=== PATIENT | female | born 1980 | race Asian ===

== ENCOUNTER → 2017-04-13 | Outpatient (CLI) | payer OTHER ==
[~2017-04-13] MED LIST: IRON PO; None per pt
== END | disposition home or self-care (01) ==
LOC: PETCFH 09:49
PROVIDERS: ATTEND Internal Medicine Hematology & Oncology
DX: C83.51 Lymphoblastic (diffuse) lymphoma, lymph nodes of head, face, and neck (principal); C88.4 Extranodal marginal zone B-cell lymphoma of mucosa-associated lymphoid tissue [MALT-lymphoma]
CPT/HCPCS: 78815; A9552

== ENCOUNTER 2017-04-28 10:02 | Day surgery (SDC) | payer OTHER ==
[~2017-04-28] VITALS: Ht 162.6 cm; Wt 52.6 kg
[2017-04-28 10:46] VITALS: BP 99/65
[2017-04-28] MEDS ORDERED: SODIUM CHLORIDE 0.9% 1,000 ML IV SCH (10:48)
[2017-04-28] MEDS ORDERED: FENTANYL PF 100 MCG/2ML ONE (11:06)
[2017-04-28] MEDS ORDERED: MIDAZOLAM 1 MG/ML, 5ML ONE ×2 (11:06)
[2017-04-28] MEDS ORDERED: NALOXONE 1 MG/ML, 2ML ONE (11:07)
[2017-04-28] MEDS ORDERED: FLUMAZENIL 0.1 MG/1 ML, 5ML ONE (11:07)
== END 2017-04-28 12:55 ==
LOC: OUT 10:02
PROVIDERS: ATTEND Internal Medicine Hematology & Oncology
DX: C85.90 Non-Hodgkin lymphoma, unspecified, unspecified site (principal)
CPT/HCPCS: 49180; 77012; 88305; 99156; J2250; J3010; J7030; 88341; 88342; 88360; 99157; G0461; J2310

== ENCOUNTER 2017-05-12 07:34 | Day surgery (SDC) | payer OTHER ==
[~2017-05-12] VITALS: Ht 162.6 cm; Wt 52.7 kg
[2017-05-12 08:37] VITALS: BP 95/66
[2017-05-12] MEDS ORDERED: CEFAZOLIN PMX 1GM/50ML 50 ML ONE (08:43)
[2017-05-12] MEDS ORDERED: LIDOCAINE 1%, 20ML ONE (09:07)
[2017-05-12] MEDS ORDERED: CEFAZOLIN PMX 1GM/50ML 50 ML IV STA (09:16)
[2017-05-12] MEDS ORDERED: MIDAZOLAM 1 MG/ML, 5ML ONE (09:17)
[2017-05-12] MEDS ORDERED: FLUMAZENIL 0.1 MG/1 ML, 5ML ONE (09:17)
[2017-05-12] MEDS ORDERED: FENTANYL PF 100 MCG/2ML ONE (09:17)
[2017-05-12] MEDS ORDERED: NALOXONE 1 MG/ML, 2ML ONE (09:17)
[2017-05-12] MEDS ORDERED: SODIUM CHLORIDE 0.9% 1,000 ML IV SCH ×2 (09:30→09:38)
== END 2017-05-12 12:20 ==
LOC: OUT 07:34
PROVIDERS: ATTEND Internal Medicine Hematology & Oncology
DX: Z45.2 Encounter for adjustment and management of vascular access device (principal); C83.90 Non-follicular (diffuse) lymphoma, unspecified, unspecified site; D50.9 Iron deficiency anemia, unspecified
CPT/HCPCS: 36561; 76937; 77001; 99156; 99157; C1788; C1894; J0690; J1642; J2250; J3010; J3490; J7030; J2310

== ENCOUNTER → 2017-07-25 | Outpatient (CLI) | payer OTHER | END | disposition home or self-care (01) | LOC: PETCFH 08:26 | PROVIDERS: ATTEND Internal Medicine Hematology & Oncology | DX: C88.4 Extranodal marginal zone B-cell lymphoma of mucosa-associated lymphoid tissue [MALT-lymphoma] (principal); C83.81 Other non-follicular lymphoma, lymph nodes of head, face, and neck | CPT/HCPCS: 78815; A9552 ==

== ENCOUNTER 2017-08-26 12:49 | Inpatient (IN) | payer OTHER ==
[~2017-08-26] VITALS: Ht 162.6 cm; Wt 61.3 kg
[2017-08-26] MEDS ORDERED: SODIUM CHLORIDE FLUSH 10ML SYR IVF ONE (13:30)
[2017-08-26 13:51] LABS: MEAN CORPUSCULAR HEMOGLOBIN 29.8 pg (27.0-34.8); MEAN CORPUSCULAR HGB CONC 33.3 g/dL (32.4-35.8); MEAN CORPUSCULAR VOLUME 89.4 fL (80-100); MEAN PLATELET VOLUME 8.2 fL (7.4-10.4); PLATELET COUNT 123 x10^3/uL (130-400); RED BLOOD COUNT 3.77 x10^6/uL (3.82-5.3); RED CELL DISTRIBUTION WIDTH 16.9 % (9.6-15.2)
[2017-08-26] MEDS ORDERED: SODIUM CHLORIDE 0.9% 1,000ML IVBOLUS ONE ×3 (14:00→16:30)
[2017-08-26] MEDS ORDERED: ONDANSETRON 2MG/ML, 2ML IVPush ONE (14:00)
[2017-08-26 14:01] LABS: ALANINE AMINOTRANSFERASE 40 U/L (12-78); ALBUMIN 3.7 g/dL (3.4-5.0); ANION GAP 9 mmol/L (5-15); CALCIUM 8.9 mg/dL (8.5-10.1); CHLORIDE 103 mmol/L (98-107); CREATININE 0.65 mg/dL (0.55-1.02)
[2017-08-26 14:06] LABS: ALKALINE PHOSPHATASE 69 U/L (45-117); BILIRUBIN,TOTAL 0.4 mg/dL (0.2-1.0); TOTAL PROTEIN 7.5 g/dL (6.4-8.2)
[2017-08-26] MEDS ORDERED: ONDANSETRON 2MG/ML, 2ML ONE (14:11)
[2017-08-26 14:22] LABS: MICROSCOPIC AUTO
[2017-08-26 14:30] LABS: CULTURE INDICATED? YES
[2017-08-26 14:38] LABS: MD YES
[2017-08-26 14:45] LABS: ANISOCYTOSIS 1+; BAND#(MANUAL) 2.29 x10^3/uL; BANDS%(MANUAL) 31 % (0-7); LYMPH#(MANUAL) 0.67 x10^3/uL (1-3.4); LYMPHS% (MANUAL) 9 % (22-44); METAMYELOCYTES# (MANUAL) 0.07 x10^3/uL (0-0); METAMYELOCYTES% (MANUAL) 1 % (0-1); MONOS#(MANUAL) 0.67 x10^3/uL (0.3-2.7); MONOS% (MANUAL) 9 % (2-9); POLYCHROMASIA 1+; SEGS% (MANUAL) 50 % (42-75)
[2017-08-26 14:46] LABS: <PLATELET ESTIMATE> ADEQUATE; <PLT MORPHOLOGY> NORMAL PLT MORPH; TOXIC GRAN 1+
[2017-08-26] MEDS ORDERED: MORPHINE SULFATE 4 MG/ML, 1ML ONE (14:53)
[2017-08-26] MEDS ORDERED: MORPHINE SULFATE 4 MG/ML, 1ML IVPush PRN (15:00)
[2017-08-26] MEDS ORDERED: SODIUM CHLORIDE 0.9% 1,000 ML IV ONE (17:34)
[2017-08-26] MEDS ORDERED: ONDA4TAB10 PO (17:43)
[2017-08-26] MEDS ORDERED: SODIUM CHLORIDE FLUSH 10ML SYR IVF PRN (18:00)
[2017-08-26] MEDS ORDERED: TEMAZEPAM 15 MG CAPSULE PO PRN (19:00)
[2017-08-26] MEDS ORDERED: METOCLOPRAMIDE 5 MG/ML, 2ML IVPush PRN (19:00)
[2017-08-26] MEDS ORDERED: ENALAPRILAT 1.25 MG/ML, 2ML IVPush PRN (19:00)
[2017-08-26] MEDS ORDERED: morphine SULFATE 10 MG/ML, 1ML IVPush PRN (19:00)
[2017-08-26] MEDS ORDERED: ONDANSETRON ODT 4 MG PO PRN (19:00)
[2017-08-26] MEDS ORDERED: DOCUSATE 100 MG CAPSULE PO PRN (19:00)
[2017-08-26 19:25] VITALS: BP 102/68
[2017-08-26] MEDS ORDERED: OMEP-110 PO (19:26)
[2017-08-26] MEDS ORDERED: NORE1TAB11 PO (19:26)
[2017-08-26] MEDS: SODIUM CHLORIDE 0.9% 1,000 ML IV SCH (19:37)
[2017-08-27 01:16] VITALS: BP 100/67
[2017-08-27] MEDS: SODIUM CHLORIDE 0.9% 1,000 ML IV SCH ×4 (02:19→22:54)
[2017-08-27 05:54] LABS: ANION GAP 8 mmol/L (5-15); CALCIUM 8.1 mg/dL (8.5-10.1); CHLORIDE 109 mmol/L (98-107)
[2017-08-27 05:56] LABS: CREATININE 0.53 mg/dL (0.55-1.02)
[2017-08-27 06:01] LABS: MEAN CORPUSCULAR HEMOGLOBIN 30.2 pg (27.0-34.8); MEAN CORPUSCULAR HGB CONC 33.7 g/dL (32.4-35.8); MEAN CORPUSCULAR VOLUME 89.5 fL (80-100); PLATELET COUNT 105 x10^3/uL (130-400); RED BLOOD COUNT 2.93 x10^6/uL (3.82-5.3); RED CELL DISTRIBUTION WIDTH 16.7 % (9.6-15.2)
[2017-08-27 07:02] LABS: MD YES
[2017-08-27 07:04] LABS: BAND#(MANUAL) 0.44 x10^3/uL; BANDS%(MANUAL) 8 % (0-7); LYMPH#(MANUAL) 0.39 x10^3/uL (1-3.4); LYMPHS% (MANUAL) 7 % (22-44); METAMYELOCYTES# (MANUAL) 0.11 x10^3/uL (0-0); METAMYELOCYTES% (MANUAL) 2 % (0-1); MONOS#(MANUAL) 0.22 x10^3/uL (0.3-2.7); MONOS% (MANUAL) 4 % (2-9); NRBC % (MANUAL) 1 % (0-1); SEG#(MANUAL) 4.35 x10^3/uL (1.8-6.8); SEGS% (MANUAL) 79 % (42-75)
[2017-08-27 07:05] LABS: <PLATELET ESTIMATE> DECREASED; <PLT MORPHOLOGY> NORMAL PLT MORPH; ANISOCYTOSIS 1+; POLYCHROMASIA 1+; TOXIC GRAN 1+
[2017-08-27 07:27] VITALS: BP 103/72
[2017-08-27] MEDS: ACETAMINOPHEN 325 MG TABLET PO PRN ×2 (07:33→15:41)
[2017-08-27 08:28] LABS: THYROID STIMULATING HORMONE 1.32 mIU/L (0.358-3.740)
[2017-08-27 12:51] VITALS: BP 111/78
[2017-08-27 18:38] VITALS: BP 98/59
[2017-08-28 01:12] VITALS: BP 101/68
[2017-08-28] MEDS: SODIUM CHLORIDE 0.9% 1,000 ML IV SCH (05:23)
[2017-08-28 05:45] LABS: BASOPHILS # (AUTO) 0.01 x10^3/uL (0-0.1); BASOPHILS % (AUTO) 0 % (0-1); EOSINOPHILS # (AUTO) 0.02 x10^3/uL (0-0.4); EOSINOPHILS % (AUTO) 0 % (1-7); LYMPHOCYTES # (AUTO) 0.24 x10^3/uL (1-3.4); LYMPHOCYTES % (AUTO) 5 % (22-44); MD NO; MEAN CORPUSCULAR HEMOGLOBIN 30.1 pg (27.0-34.8); MEAN CORPUSCULAR HGB CONC 33.8 g/dL (32.4-35.8); MEAN PLATELET VOLUME 7.9 fL (7.4-10.4); MONOCYTES # (AUTO) 0.44 x10^3/uL (0.2-0.8); MONOCYTES % (AUTO) 9 % (2-9); NEUTROPHILS # (AUTO) 4.23 x10^3/uL (1.8-6.8); NEUTROPHILS % (AUTO) 86 % (42-75); PLATELET COUNT 127 x10^3/uL (130-400); RED BLOOD COUNT 3.19 x10^6/uL (3.82-5.3)
[2017-08-28 05:53] LABS: CHLORIDE 110 mmol/L (98-107)
[2017-08-28 06:01] LABS: ANION GAP 7 mmol/L (5-15); CALCIUM 8.5 mg/dL (8.5-10.1); CREATININE 0.53 mg/dL (0.55-1.02)
[2017-08-28 07:40] VITALS: BP 121/78
[2017-08-28] MEDS ORDERED: OMNIPAQUE 350 MG/ML, 100ML BOTTLE ONE (09:54)
[2017-08-28 12:45] VITALS: BP 118/81
== END 2017-08-28 17:25 | disposition home or self-care (01) | DRG 641 ==
LOC: ED 17:15 → EDIP 17:34 → 3NW 18:50
PROVIDERS: ADMIT Hospitalist; ATTEND Hospitalist
DX: E86.0 Dehydration (principal); C85.90 Non-Hodgkin lymphoma, unspecified, unspecified site; D69.59 Other secondary thrombocytopenia; D64.81 Anemia due to antineoplastic chemotherapy; T45.1X5A Adverse effect of antineoplastic and immunosuppressive drugs, initial encounter; R00.0 Tachycardia, unspecified
CPT/HCPCS: 36415; 71275; 80048; 80053; 81001; 82533; 83690; 83735; 84443; 84703; 85025; 87086; 96361; 96374; 96375; J2405; Q9967; J2270; J7030

== ENCOUNTER → 2017-10-05 | Outpatient (CLI) | payer OTHER ==
[~2017-10-05] MED LIST changes: +NORE1TAB11 PO; +OMEP-110 PO; +ONDA4TAB10 PO
[2017-10-05 17:49] LABS: MICROSCOPIC AUTO
[2017-10-05 17:51] LABS: CULTURE INDICATED? YES
== END | disposition home or self-care (01) ==
LOC: LAB 17:19
PROVIDERS: ATTEND Internal Medicine Hematology & Oncology
DX: C83.81 Other non-follicular lymphoma, lymph nodes of head, face, and neck (principal); C88.4 Extranodal marginal zone B-cell lymphoma of mucosa-associated lymphoid tissue [MALT-lymphoma]; D70.1 Agranulocytosis secondary to cancer chemotherapy; R59.0 Localized enlarged lymph nodes
CPT/HCPCS: 81001; 87086

== ENCOUNTER → 2017-11-04 | Outpatient (CLI) | payer OTHER | END | disposition home or self-care (01) | LOC: CVU 12:43 → EDSTATUS 13:00 | PROVIDERS: ATTEND Internal Medicine Hematology & Oncology | DX: C88.4 Extranodal marginal zone B-cell lymphoma of mucosa-associated lymphoid tissue [MALT-lymphoma] (principal); C83.81 Other non-follicular lymphoma, lymph nodes of head, face, and neck | CPT/HCPCS: 93306 ==

== ENCOUNTER → 2018-02-13 | Outpatient (CLI) | payer OTHER ==
[~2018-02-13] MED LIST changes: +OMNIPAQUE 350 MG/ML, 100ML BOTTLE ONE
== END | disposition home or self-care (01) ==
LOC: RAD 08:42
PROVIDERS: ATTEND Internal Medicine Hematology & Oncology
DX: N32.89 Other specified disorders of bladder (principal); C88.4 Extranodal marginal zone B-cell lymphoma of mucosa-associated lymphoid tissue [MALT-lymphoma]; C83.81 Other non-follicular lymphoma, lymph nodes of head, face, and neck
CPT/HCPCS: 71260; 74177; J1642; Q9967

== ENCOUNTER → 2018-02-20 | Outpatient (CLI) | payer OTHER ==
[~2018-02-20] MED LIST changes: -OMNIPAQUE 350 MG/ML, 100ML BOTTLE ONE
== END | disposition home or self-care (01) ==
LOC: CFH 07:19
PROVIDERS: ATTEND Internal Medicine Hematology & Oncology
DX: C83.81 Other non-follicular lymphoma, lymph nodes of head, face, and neck (principal); C88.4 Extranodal marginal zone B-cell lymphoma of mucosa-associated lymphoid tissue [MALT-lymphoma]; I95.9 Hypotension, unspecified
CPT/HCPCS: 93005; 93306

== ENCOUNTER → 2018-04-15 | Outpatient (CLI) | payer OTHER ==
[2018-04-15 11:55] LABS: ALANINE AMINOTRANSFERASE 20 U/L (12-78); ANION GAP 6 mmol/L (5-15); CALCIUM 8.7 mg/dL (8.5-10.1); CHLORIDE 109 mmol/L (98-107); CREATININE 0.67 mg/dL (0.55-1.02)
[2018-04-15 11:57] LABS: ALKALINE PHOSPHATASE 47 U/L (45-117); BILIRUBIN,TOTAL 0.7 mg/dL (0.2-1.0); TOTAL PROTEIN 7.2 g/dL (6.4-8.2)
== END | disposition home or self-care (01) ==
LOC: LAB 11:21
PROVIDERS: ATTEND Internal Medicine Hematology & Oncology
DX: C83.81 Other non-follicular lymphoma, lymph nodes of head, face, and neck (principal); R59.0 Localized enlarged lymph nodes; C88.4 Extranodal marginal zone B-cell lymphoma of mucosa-associated lymphoid tissue [MALT-lymphoma]; D70.1 Agranulocytosis secondary to cancer chemotherapy; Z51.11 Encounter for antineoplastic chemotherapy; Z51.12 Encounter for antineoplastic immunotherapy
CPT/HCPCS: 36415; 80053

== ENCOUNTER → 2018-08-17 | Outpatient (CLI) | payer OTHER ==
[~2018-08-17] MED LIST changes: +OMNIPAQUE 350 MG/ML, 100ML BOTTLE ONE
== END | disposition home or self-care (01) ==
LOC: CFH 12:20
PROVIDERS: ATTEND Internal Medicine Hematology & Oncology
DX: C83.81 Other non-follicular lymphoma, lymph nodes of head, face, and neck (principal); K76.9 Liver disease, unspecified
CPT/HCPCS: 71260; 74177; Q9967

== ENCOUNTER 2018-10-06 11:06 | Outpatient (CLI) | payer OTHER ==
[~2018-10-06 11:06] MED LIST changes: -OMNIPAQUE 350 MG/ML, 100ML BOTTLE ONE
[2018-10-06 11:34] LABS: ALBUMIN 4.4 g/dL (3.4-5.0); ANION GAP 6 mmol/L (5-15); CALCIUM 9.4 mg/dL (8.5-10.1); CHLORIDE 107 mmol/L (98-107)
[2018-10-06 11:37] LABS: ALANINE AMINOTRANSFERASE 20 U/L (12-78); ALKALINE PHOSPHATASE 52 U/L (45-117); BILIRUBIN,TOTAL 0.7 mg/dL (0.2-1.0); CREATININE 0.78 mg/dL (0.55-1.02); TOTAL PROTEIN 7.4 g/dL (6.4-8.2)
== END 2018-10-06 23:59 | disposition home or self-care (01) ==
LOC: LAB 11:06
PROVIDERS: ATTEND Internal Medicine Hematology & Oncology
DX: Z51.12 Encounter for antineoplastic immunotherapy (principal); Z51.11 Encounter for antineoplastic chemotherapy; C83.81 Other non-follicular lymphoma, lymph nodes of head, face, and neck; R59.0 Localized enlarged lymph nodes; C88.4 Extranodal marginal zone B-cell lymphoma of mucosa-associated lymphoid tissue [MALT-lymphoma]; D70.1 Agranulocytosis secondary to cancer chemotherapy
CPT/HCPCS: 36415; 80053; 83615

== ENCOUNTER → 2018-10-09 | Outpatient (CLI) | payer BC, OTHER | END | disposition home or self-care (01) | LOC: CFH 09:08 → MERGE 09:08 | PROVIDERS: ATTEND Internal Medicine Cardiovascular Disease | DX: R00.0 Tachycardia, unspecified (principal) | CPT/HCPCS: 93306 ==

== ENCOUNTER → 2018-11-15 | Outpatient (CLI) | payer OTHER | END | disposition home or self-care (01) | LOC: RAD 14:42 | PROVIDERS: ATTEND Internal Medicine | DX: M25.511 Pain in right shoulder (principal); Z98.890 Other specified postprocedural states ==

== ENCOUNTER → 2018-11-22 | Outpatient (CLI) | payer OTHER ==
[2018-11-22 14:24] LABS: BASOPHILS # (AUTO) 0.01 x10^3/uL (0-0.1); BASOPHILS % (AUTO) 0 % (0-1); EOSINOPHILS # (AUTO) 0.19 x10^3/uL (0-0.4); EOSINOPHILS % (AUTO) 5 % (1-7); LYMPHOCYTES # (AUTO) 0.75 x10^3/uL (1-3.4); LYMPHOCYTES % (AUTO) 19 % (22-44); MD NO; MEAN CORPUSCULAR HEMOGLOBIN 28.9 pg (27.0-34.8); MEAN CORPUSCULAR HGB CONC 33.2 g/dL (32.4-35.8); MEAN CORPUSCULAR VOLUME 86.9 fL (80-100); MEAN PLATELET VOLUME 7.8 fL (7.4-10.4); MONOCYTES # (AUTO) 0.36 x10^3/uL (0.2-0.8); MONOCYTES % (AUTO) 9 % (2-9); NEUTROPHILS # (AUTO) 2.68 x10^3/uL (1.8-6.8); NEUTROPHILS % (AUTO) 67 % (42-75); PLATELET COUNT 206 x10^3/uL (130-400); RED BLOOD COUNT 4.41 x10^6/uL (3.82-5.3); RED CELL DISTRIBUTION WIDTH 13.9 % (9.6-15.2)
[2018-11-22 14:45] LABS: FREE T4 (FREE THYROXINE) 0.93 ng/dL (0.76-1.46); THYROID STIMULATING HORMONE 1.09 mIU/L (0.358-3.740)
== END | disposition home or self-care (01) ==
LOC: LAB 14:07
PROVIDERS: ATTEND Obstetrics & Gynecology
DX: E03.9 Hypothyroidism, unspecified (principal); E34.9 Endocrine disorder, unspecified; N92.0 Excessive and frequent menstruation with regular cycle
CPT/HCPCS: 36415; 82670; 82728; 83001; 84439; 84443; 85025

== ENCOUNTER → 2018-11-27 | Outpatient (CLI) | payer OTHER | END | disposition home or self-care (01) | LOC: CFH 15:00 | PROVIDERS: ATTEND Obstetrics & Gynecology | DX: N94.6 Dysmenorrhea, unspecified (principal) | CPT/HCPCS: 76830 ==

== ENCOUNTER → 2018-12-01 | Outpatient (CLI) | payer OTHER ==
[2018-12-01 14:45] LABS: ALANINE AMINOTRANSFERASE 21 U/L (12-78); ALBUMIN 3.9 g/dL (3.4-5.0); ANION GAP 5 mmol/L (5-15); CALCIUM 9.2 mg/dL (8.5-10.1); CHLORIDE 106 mmol/L (98-107); CREATININE 0.72 mg/dL (0.55-1.02)
[2018-12-01 14:47] LABS: ALKALINE PHOSPHATASE 64 U/L (45-117); BILIRUBIN,TOTAL 0.4 mg/dL (0.2-1.0); TOTAL PROTEIN 7.2 g/dL (6.4-8.2)
== END | disposition home or self-care (01) ==
LOC: LAB 14:10
PROVIDERS: ATTEND Internal Medicine Hematology & Oncology
DX: Z51.12 Encounter for antineoplastic immunotherapy (principal); Z51.11 Encounter for antineoplastic chemotherapy; C83.81 Other non-follicular lymphoma, lymph nodes of head, face, and neck; R59.0 Localized enlarged lymph nodes; C88.4 Extranodal marginal zone B-cell lymphoma of mucosa-associated lymphoid tissue [MALT-lymphoma]; D70.1 Agranulocytosis secondary to cancer chemotherapy
CPT/HCPCS: 36415; 80053

== ENCOUNTER 2019-06-01 14:59 | Outpatient (CLI) | payer OTHER ==
[2019-06-01 15:41] LABS: ALANINE AMINOTRANSFERASE 21 U/L (12-78); ALBUMIN 3.9 g/dL (3.4-5.0); ANION GAP 6 mmol/L (5-15); CALCIUM 8.4 mg/dL (8.5-10.1); CHLORIDE 107 mmol/L (98-107); CREATININE 0.75 mg/dL (0.55-1.02)
[2019-06-01 15:43] LABS: ALKALINE PHOSPHATASE 55 U/L (45-117); BILIRUBIN,TOTAL 0.6 mg/dL (0.2-1.0); TOTAL PROTEIN 6.7 g/dL (6.4-8.2)
== END 2019-06-01 23:59 | disposition home or self-care (01) ==
LOC: LAB 14:59
PROVIDERS: ATTEND Internal Medicine Hematology & Oncology
DX: Z51.11 Encounter for antineoplastic chemotherapy (principal); Z51.12 Encounter for antineoplastic immunotherapy; C83.81 Other non-follicular lymphoma, lymph nodes of head, face, and neck; R59.0 Localized enlarged lymph nodes; C88.4 Extranodal marginal zone B-cell lymphoma of mucosa-associated lymphoid tissue [MALT-lymphoma]; D70.1 Agranulocytosis secondary to cancer chemotherapy
CPT/HCPCS: 36415; 80053

== ENCOUNTER 2019-07-27 09:14 | Outpatient (CLI) | payer OTHER ==
[2019-07-27 09:39] LABS: ALANINE AMINOTRANSFERASE 21 U/L (12-78); ALBUMIN 3.9 g/dL (3.4-5.0); ANION GAP 4 mmol/L (5-15); CALCIUM 8.7 mg/dL (8.5-10.1); CHLORIDE 108 mmol/L (98-107); CREATININE 0.71 mg/dL (0.55-1.02)
[2019-07-27 09:41] LABS: ALKALINE PHOSPHATASE 62 U/L (45-117); BILIRUBIN,TOTAL 0.8 mg/dL (0.2-1.0)
== END 2019-07-27 23:59 | disposition home or self-care (01) ==
LOC: LAB 09:14
PROVIDERS: ATTEND Internal Medicine Hematology & Oncology
DX: Z51.11 Encounter for antineoplastic chemotherapy (principal); Z51.12 Encounter for antineoplastic immunotherapy; D70.1 Agranulocytosis secondary to cancer chemotherapy; C88.4 Extranodal marginal zone B-cell lymphoma of mucosa-associated lymphoid tissue [MALT-lymphoma]; C83.81 Other non-follicular lymphoma, lymph nodes of head, face, and neck
CPT/HCPCS: 36415; 80053

== ENCOUNTER → 2019-09-20 | Outpatient (CLI) | payer OTHER ==
[2019-09-20 13:55] LABS: ALANINE AMINOTRANSFERASE 19 U/L (12-78); ANION GAP 4 mmol/L (5-15); CALCIUM 9.2 mg/dL (8.5-10.1); CHLORIDE 106 mmol/L (98-107); CREATININE 0.64 mg/dL (0.55-1.02)
[2019-09-20 13:57] LABS: ALKALINE PHOSPHATASE 70 U/L (45-117); BILIRUBIN,TOTAL 0.6 mg/dL (0.2-1.0); TOTAL PROTEIN 7.4 g/dL (6.4-8.2)
== END | disposition home or self-care (01) ==
LOC: LAB 13:31
PROVIDERS: ATTEND Internal Medicine Hematology & Oncology
DX: Z51.11 Encounter for antineoplastic chemotherapy (principal); Z51.12 Encounter for antineoplastic immunotherapy; C83.81 Other non-follicular lymphoma, lymph nodes of head, face, and neck; C88.4 Extranodal marginal zone B-cell lymphoma of mucosa-associated lymphoid tissue [MALT-lymphoma]; R59.0 Localized enlarged lymph nodes; D70.1 Agranulocytosis secondary to cancer chemotherapy
CPT/HCPCS: 36415; 80053

== ENCOUNTER → 2019-11-23 | Outpatient (CLI) | payer OTHER ==
[~2019-11-23] MED LIST changes: +OMNIPAQUE 350 MG/ML, 100ML BOTTLE ONE
== END | disposition home or self-care (01) ==
LOC: CFH 11:17
PROVIDERS: ATTEND Internal Medicine Hematology & Oncology
DX: C83.81 Other non-follicular lymphoma, lymph nodes of head, face, and neck (principal); C88.4 Extranodal marginal zone B-cell lymphoma of mucosa-associated lymphoid tissue [MALT-lymphoma]; D73.4 Cyst of spleen
CPT/HCPCS: 71260; 74177; Q9967

== ENCOUNTER → 2019-11-27 | Outpatient (CLI) | payer OTHER ==
[~2019-11-27] MED LIST changes: -OMNIPAQUE 350 MG/ML, 100ML BOTTLE ONE
[2019-11-27 09:49] LABS: ALBUMIN 4.1 g/dL (3.4-5.0); CALCIUM 9.3 mg/dL (8.5-10.1)
[2019-11-27 09:53] LABS: ALANINE AMINOTRANSFERASE 16 U/L (12-78); ALKALINE PHOSPHATASE 66 U/L (45-117); BILIRUBIN,TOTAL 0.8 mg/dL (0.2-1.0); CREATININE 0.67 mg/dL (0.55-1.02); TOTAL PROTEIN 7.3 g/dL (6.4-8.2)
[2019-11-27 09:57] LABS: ANION GAP 6 mmol/L (5-15); CHLORIDE 108 mmol/L (98-107)
== END | disposition home or self-care (01) ==
LOC: LAB 09:25
PROVIDERS: ATTEND Internal Medicine Hematology & Oncology
DX: Z51.11 Encounter for antineoplastic chemotherapy (principal); Z51.12 Encounter for antineoplastic immunotherapy; C83.81 Other non-follicular lymphoma, lymph nodes of head, face, and neck; C88.4 Extranodal marginal zone B-cell lymphoma of mucosa-associated lymphoid tissue [MALT-lymphoma]; D70.1 Agranulocytosis secondary to cancer chemotherapy; R59.0 Localized enlarged lymph nodes
CPT/HCPCS: 36415; 80053

== ENCOUNTER 2019-12-06 08:06 | Day surgery (SDC) | payer OTHER ==
[~2019-12-06] VITALS: Ht 162.6 cm; Wt 52.9 kg
[2019-12-06] MEDS ORDERED: SODIUM CHLORIDE 0.9% 1,000 ML IV SCH (08:21)
[2019-12-06 08:29] VITALS: BP 98/67
[2019-12-06] MEDS ORDERED: LIDOCAINE 1%, 20ML ONE (08:39)
[2019-12-06] MEDS ORDERED: NALOXONE 1 MG/ML, 2ML ONE (09:40)
[2019-12-06] MEDS ORDERED: FLUMAZENIL 0.1 MG/1 ML, 5ML ONE (09:40)
[2019-12-06] MEDS ORDERED: FENTANYL PF 100 MCG/2ML ONE ×2 (09:40)
[2019-12-06] MEDS ORDERED: MIDAZOLAM 1 MG/ML, 5ML ONE (09:40)
== END 2019-12-06 11:55 | disposition home or self-care (01) ==
LOC: OUT 08:06
PROVIDERS: ATTEND Internal Medicine Hematology & Oncology
DX: Z45.2 Encounter for adjustment and management of vascular access device (principal); C83.81 Other non-follicular lymphoma, lymph nodes of head, face, and neck; D50.0 Iron deficiency anemia secondary to blood loss (chronic); E55.9 Vitamin D deficiency, unspecified
CPT/HCPCS: 36590; 77001; 99156; 99157; J2250; J3010; J7030; J2310

== ENCOUNTER 2020-01-08 09:20 | Emergency (ER) | payer OTHER ==
[~2020-01-08] VITALS: Ht 162.6 cm; Wt 53.0 kg
[2020-01-08 09:30] VITALS: BP 108/72
--- NOTE | 2020-01-08 09:46 | NUR ---
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
--- NOTE | 2020-01-08 09:56 | NUR ---
PT CAME IN CONCERNED ABOUT HER PORT HEALING SITE. SHE RECENTLY HAS HER PORT REMOVED AND SHE IS AFRAID IT IS INFECTED. SHE IS IN REMISSION FOR LYMPHOMA. SITE IS CLEAN, DRY, AND PINK WITH MINOR SCABING. PT IS RESTING IN [facility]. MD IS BEDSIDE FOR ASSESSMENT
[2020-01-08 10:19] LABS: BASOPHILS # (AUTO) 0.01 x10^3/uL (0-0.1); BASOPHILS % (AUTO) 0 % (0-1); EOSINOPHILS # (AUTO) 0.15 x10^3/uL (0-0.4); EOSINOPHILS % (AUTO) 4 % (1-7); LYMPHOCYTES # (AUTO) 0.75 x10^3/uL (1-3.4); LYMPHOCYTES % (AUTO) 21 % (22-44); MD NO; MEAN CORPUSCULAR HEMOGLOBIN 29.3 pg (27.0-34.8); MEAN CORPUSCULAR HGB CONC 33.1 g/dL (32.4-35.8); MEAN CORPUSCULAR VOLUME 88.6 fL (80-100); MEAN PLATELET VOLUME 8.4 fL (7.4-10.4); MONOCYTES # (AUTO) 0.32 x10^3/uL (0.2-0.8); MONOCYTES % (AUTO) 9 % (2-9); NEUTROPHILS # (AUTO) 2.44 x10^3/uL (1.8-6.8); NEUTROPHILS % (AUTO) 66 % (42-75); PLATELET COUNT 197 x10^3/uL (130-400); RED BLOOD COUNT 4.99 x10^6/uL (3.82-5.3); RED CELL DISTRIBUTION WIDTH 12.7 % (9.6-15.2)
== END 2020-01-08 11:45 | disposition home or self-care (01) ==
LOC: ED 11:15
DX: L02.213 Cutaneous abscess of chest wall (principal)
CPT/HCPCS: 36415; 76604; 85025; 99284

== ENCOUNTER → 2020-04-11 | Outpatient (CLI) | payer OTHER ==
[2020-04-11 14:36] LABS: ALANINE AMINOTRANSFERASE 15 U/L (12-78); ALBUMIN 3.8 g/dL (3.4-5.0); ANION GAP 6 mmol/L (5-15); CALCIUM 8.7 mg/dL (8.5-10.1); CHLORIDE 109 mmol/L (98-107)
[2020-04-11 14:39] LABS: ALKALINE PHOSPHATASE 64 U/L (45-117); BILIRUBIN,TOTAL 0.5 mg/dL (0.2-1.0); CREATININE 0.61 mg/dL (0.55-1.02); TOTAL PROTEIN 6.6 g/dL (6.4-8.2)
== END | disposition home or self-care (01) ==
LOC: LAB 14:11
PROVIDERS: ATTEND Internal Medicine Hematology & Oncology
DX: Z51.11 Encounter for antineoplastic chemotherapy (principal); Z51.12 Encounter for antineoplastic immunotherapy; C88.4 Extranodal marginal zone B-cell lymphoma of mucosa-associated lymphoid tissue [MALT-lymphoma]; C83.81 Other non-follicular lymphoma, lymph nodes of head, face, and neck; R59.0 Localized enlarged lymph nodes; D70.1 Agranulocytosis secondary to cancer chemotherapy
CPT/HCPCS: 36415; 80053; 83615

== ENCOUNTER → 2020-04-22 | Outpatient (CLI) | payer OTHER ==
[~2020-04-22] MED LIST changes: +OMNIPAQUE 350 MG/ML, 100ML BOTTLE ONE
== END | disposition home or self-care (01) ==
LOC: CFH 14:13
PROVIDERS: ATTEND Internal Medicine Hematology & Oncology
DX: C83.81 Other non-follicular lymphoma, lymph nodes of head, face, and neck (principal); C88.4 Extranodal marginal zone B-cell lymphoma of mucosa-associated lymphoid tissue [MALT-lymphoma]; M95.4 Acquired deformity of chest and rib; K76.89 Other specified diseases of liver
CPT/HCPCS: 71260; 74177; Q9967

== ENCOUNTER → 2020-07-24 | Outpatient (CLI) | payer OTHER ==
[~2020-07-24] MED LIST changes: -OMNIPAQUE 350 MG/ML, 100ML BOTTLE ONE
[2020-07-24 07:50] LABS: BASOPHILS % (AUTO) 0 % (0-1); EOSINOPHILS % (AUTO) 3 % (1-7); LYMPHOCYTES % (AUTO) 14 % (22-44); MEAN CORPUSCULAR HEMOGLOBIN 30.1 pg (27.0-34.8); MEAN CORPUSCULAR HGB CONC 34.3 g/dL (32.4-35.8); MEAN PLATELET VOLUME 8.1 fL (7.4-10.4); MONOCYTES % (AUTO) 6 % (2-9); NEUTROPHILS % (AUTO) 77 % (42-75); PLATELET COUNT 205 x10^3/uL (130-400); RED BLOOD COUNT 4.73 x10^6/uL (3.82-5.3); RED CELL DISTRIBUTION WIDTH 13.4 % (9.6-15.2)
[2020-07-24 07:58] LABS: MD NO
[2020-07-24 08:10] LABS: FREE T4 (FREE THYROXINE) 0.95 ng/dL (0.76-1.46)
== END | disposition home or self-care (01) ==
LOC: LAB 07:37
PROVIDERS: ATTEND Obstetrics & Gynecology
DX: N95.0 Postmenopausal bleeding (principal)
CPT/HCPCS: 36415; 82728; 84439; 84443; 85025

== ENCOUNTER → 2020-08-28 | Outpatient (CLI) | payer OTHER ==
[~2020-08-28] MED LIST changes: +ASCO100018 PO; +CHOL10003 PO; +CYAN1TAB29 PO
[2020-08-28 15:23] LABS: BASOPHILS % (AUTO) 0 % (0-1); EOSINOPHILS % (AUTO) 3 % (1-7); LYMPHOCYTES % (AUTO) 24 % (22-44); MEAN CORPUSCULAR HEMOGLOBIN 29.8 pg (27.0-34.8); MEAN CORPUSCULAR HGB CONC 33.9 g/dL (32.4-35.8); MEAN PLATELET VOLUME 8.3 fL (7.4-10.4); MONOCYTES % (AUTO) 8 % (2-9); NEUTROPHILS % (AUTO) 65 % (42-75); PLATELET COUNT 221 x10^3/uL (130-400); RED BLOOD COUNT 4.51 x10^6/uL (3.82-5.3); RED CELL DISTRIBUTION WIDTH 12.5 % (9.6-15.2)
[2020-08-28 15:31] LABS: ALANINE AMINOTRANSFERASE 16 U/L (12-78); ANION GAP 3 mmol/L (5-15); CHLORIDE 106 mmol/L (98-107)
[2020-08-28 15:33] LABS: MD NO
[2020-08-28 15:36] LABS: ALKALINE PHOSPHATASE 61 U/L (45-117); BILIRUBIN,TOTAL 0.5 mg/dL (0.2-1.0)
== END | disposition home or self-care (01) ==
LOC: STAR 13:58
PROVIDERS: ATTEND Obstetrics & Gynecology
DX: Z01.812 Encounter for preprocedural laboratory examination (principal); Z20.822 Contact with and (suspected) exposure to COVID-19; N95.0 Postmenopausal bleeding
CPT/HCPCS: 36415; 71046; 80053; 84703; 85025; 93005; U0003

== ENCOUNTER 2020-09-03 12:18 | Observation (INO) | payer OTHER ==
[~2020-09-03] VITALS: Ht 162.6 cm; Wt 58.6 kg
[2020-09-03] MEDS ORDERED: CHLORHEXIDINE 15 ML UDC ONE (12:40)
[2020-09-03] MEDS ORDERED: LACTATED RINGERS 1,000 ML IV SCH (13:00)
[2020-09-03] MEDS ORDERED: CHLORHEXIDINE 15 ML UDC PO ONE (13:00)
[2020-09-03 13:44] LABS: HCG UR SG 1.022 (1.003-1.030)
[2020-09-03] MEDS ORDERED: INDIGO CARMINE 0.8%, 5ML ONE (14:23)
[2020-09-03] MEDS ORDERED: FLUORESCEIN SODIUM 500 MG/5 ML ONE (14:23)
[2020-09-03] MEDS ORDERED: BUPIVACAINE/PF 0.25% ONE (14:23)
[2020-09-03] MEDS ORDERED: EPINEPHRINE 1 MG/ML, 1ML ONE (14:23)
[2020-09-03] MEDS ORDERED: PROPOFOL 50 ML ONE (15:04)
[2020-09-03] MEDS ORDERED: MIDAZOLAM 1 MG/ML, 2ML ONE (15:05)
[2020-09-03] MEDS ORDERED: FENTANYL PF 250 MCG/5ML ONE (15:05)
[2020-09-03] MEDS ORDERED: EPHEDRINE 50 MG/ML, 1ML IVPush PRN (16:00)
[2020-09-03] MEDS ORDERED: MEPERIDINE/PF 25MG/0.5ML IVPush PRN (16:00)
[2020-09-03] MEDS ORDERED: ACETAMINOPHEN 325 MG TABLET PO PRN (16:00)
[2020-09-03] MEDS ORDERED: LABETALOL 5MG/ML, 20ML IV PRN (16:00)
[2020-09-03] MEDS ORDERED: DIPHENHYDRAMINE 50 MG/ML, 1ML IVPush PRN (16:00)
[2020-09-03] MEDS ORDERED: PROMETHAZINE 25 MG/ML, 1ML IVPush PRN (16:00)
[2020-09-03] MEDS ORDERED: ONDANSETRON 2MG/ML, 2ML IVPush PRN (16:00)
[2020-09-03] MEDS ORDERED: EPHEDRINE 50 MG/ML, 1ML IM PRN (16:00)
[2020-09-03] MEDS ORDERED: DIAZEPAM 5 MG/ML, 2ML IVPush PRN (16:00)
[2020-09-03] MEDS ORDERED: ONDANSETRON 2MG/ML, 2ML ONE ×2 (16:35→18:11)
[2020-09-03] MEDS ORDERED: KETOROLAC 30 MG/1 ML ONE (16:35)
[2020-09-03] MEDS ORDERED: ROCURONIUM 10MG/ML,5ML ONE (16:35)
[2020-09-03] MEDS ORDERED: PROPOFOL 10 MG/ML, 20ML ONE (16:35)
[2020-09-03] MEDS ORDERED: DEXAMETHASONE 4 MG/ML, 1ML ONE (16:35)
[2020-09-03] MEDS ORDERED: SUCCINYLCHOLINE 20 MG/ML, 10ML ONE (16:35)
[2020-09-03] MEDS ORDERED: CEFAZOLIN 1,000 MG ONE (16:35)
[2020-09-03] MEDS ORDERED: FENTANYL PF 100 MCG/2ML ONE (18:09)
[2020-09-03] MEDS ORDERED: OXYcodone 5 MG/5 ML ORAL.SOL UDC ONE (18:09)
[2020-09-03] MEDS: FENTANYL PF 100 MCG/2ML IV PRN ×2 (18:19→18:25)
[2020-09-03] MEDS: OXYcodone 5 MG/5 ML ORAL.SOL UDC PO PRN ×2 (18:31→21:13)
[2020-09-03] MEDS ORDERED: HYDROmorphone 1 MG/ML, 1ML INJ ONE (18:46)
[2020-09-03] MEDS: HYDROmorphone 1 MG/ML, 1ML INJ IVPush PRN ×3 (18:49→19:04)
[2020-09-03] MEDS ORDERED: OXYC1TAB14 PO (20:03)
[2020-09-03] MEDS ORDERED: IBUP-1222 PO (20:04)
[2020-09-03] MEDS ORDERED: DOCU-131 PO (20:04)
[2020-09-03 20:33] LABS: BASOPHILS % (AUTO) 0 % (0-1); EOSINOPHILS % (AUTO) 0 % (1-7); LYMPHOCYTES % (AUTO) 4 % (22-44); MEAN CORPUSCULAR HEMOGLOBIN 29.7 pg (27.0-34.8); MONOCYTES % (AUTO) 1 % (2-9); NEUTROPHILS % (AUTO) 95 % (42-75); PLATELET COUNT 177 x10^3/uL (130-400); RED BLOOD COUNT 4.26 x10^6/uL (3.82-5.3); RED CELL DISTRIBUTION WIDTH 12.3 % (9.6-15.2)
[2020-09-03 20:45] LABS: ANION GAP 4 mmol/L (5-15); CALCIUM 8.7 mg/dL (8.5-10.1); CHLORIDE 110 mmol/L (98-107)
[2020-09-03 20:56] LABS: MD SCAN
[2020-09-03] MEDS ORDERED: KETOROLAC 30 MG/1 ML IM PRN (23:30)
[2020-09-03] MEDS ORDERED: OXYcodone/APAP 5/325MG TABLET PO PRN (23:30)
[2020-09-03] MEDS ORDERED: IBUPROFEN 600 MG TABLET PO PRN (23:30)
[2020-09-04 00:25] VITALS: BP 93/58
[2020-09-04] MEDS ORDERED: KETOROLAC 30 MG/1 ML IV PRN (00:30)
[2020-09-04] MEDS ORDERED: OXYcodone/APAP 5/325MG TABLET PO PRN (00:30)
[2020-09-04] MEDS ORDERED: morphine SULFATE 10 MG/ML, 1ML IV PRN (00:30)
[2020-09-04] MEDS: LACTATED RINGERS 1,000 ML IV SCH ×2 (02:18→10:30)
[2020-09-04] MEDS ORDERED: ONDANSETRON 2MG/ML, 2ML IVPush PRN (02:30)
[2020-09-04] MEDS: IBUPROFEN 600 MG TABLET PO SCH ×3 (04:23→11:00)
[2020-09-04 05:04] VITALS: BP 103/69
[2020-09-04 06:54] VITALS: BP 104/70
[2020-09-04] MEDS ORDERED: CYANOCOBALOMIN 100MCG TABLET PO SCH (09:00)
[2020-09-04] MEDS ORDERED: FOLIC ACID 1 MG TABLET PO SCH (09:00)
[2020-09-04] MEDS ORDERED: ASCORBIC ACID 500 MG TABLET PO SCH (09:00)
[2020-09-04] MEDS ORDERED: CHOLECALCIFEROL 1,000 UNIT TABLET PO SCH (09:00)
[2020-09-04 09:08] LABS: BASOPHILS % (AUTO) 0 % (0-1); EOSINOPHILS % (AUTO) 0 % (1-7); LYMPHOCYTES % (AUTO) 8 % (22-44); MEAN CORPUSCULAR HEMOGLOBIN 30.1 pg (27.0-34.8); MEAN CORPUSCULAR HGB CONC 34.4 g/dL (32.4-35.8); MEAN PLATELET VOLUME 8.2 fL (7.4-10.4); MONOCYTES % (AUTO) 6 % (2-9); NEUTROPHILS % (AUTO) 87 % (42-75); PLATELET COUNT 177 x10^3/uL (130-400); RED BLOOD COUNT 3.58 x10^6/uL (3.82-5.3); RED CELL DISTRIBUTION WIDTH 12.2 % (9.6-15.2)
[2020-09-04 09:10] LABS: MD SCAN
[2020-09-04 09:16] LABS: ALBUMIN 3.3 g/dL (3.4-5.0); ANION GAP 5 mmol/L (5-15); CALCIUM 8.6 mg/dL (8.5-10.1); CHLORIDE 109 mmol/L (98-107)
[2020-09-04 09:20] LABS: ALANINE AMINOTRANSFERASE 13 U/L (12-78); ALKALINE PHOSPHATASE 43 U/L (45-117); BILIRUBIN,TOTAL 0.9 mg/dL (0.2-1.0); TOTAL PROTEIN 5.7 g/dL (6.4-8.2)
[2020-09-04 14:55] VITALS: BP 106/71
== END 2020-09-04 16:50 | disposition home or self-care (01) ==
LOC: OUT 12:18 → ORIP 23:30 → 4NE 23:41 → DCLOUNGE 09-04 16:38
PROVIDERS: ADMIT Obstetrics & Gynecology; ATTEND Obstetrics & Gynecology
DX: N95.0 Postmenopausal bleeding (principal); N85.4 Malposition of uterus; R93.89 Abnormal findings on diagnostic imaging of other specified body structures; Z85.72 Personal history of non-Hodgkin lymphomas; Z98.891 History of uterine scar from previous surgery; Z79.899 Other long term (current) drug therapy
CPT/HCPCS: 36415; 52000; 58552; 80048; 80053; 81025; 82962; 85014; 85018; 85025; 86850; 86870; 86900; 86922; 88307; 96361; 96374; 96375; G0378; J0171; J0330; J0690; J1100; J1170; J1885; J2250; J2270; J2405; J2704; J3010; J7120; 86923

== ENCOUNTER 2020-09-05 10:45 | Inpatient (IN) | payer OTHER ==
[~2020-09-05] VITALS: Ht 162.6 cm; Wt 59.0 kg
[~2020-09-05 10:45] MED LIST changes: +DOCU-131 PO; +IBUP-1222 PO; +OXYC1TAB14 PO
--- NOTE | 2020-09-05 11:20 | NUR ---
Pt had recent hysterectomy on 09/03, surgical sites look clean and well approx, suddend onset of R sided chest pain that radiates to back, onset last night, pain is intermittent and described as an aching feeling. Placed on all monitors, positioned for comfort, VSS, given warm blanket, NADN.
[2020-09-05 11:36] LABS: BASOPHILS % (AUTO) 0 % (0-1); EOSINOPHILS % (AUTO) 1 % (1-7); LYMPHOCYTES % (AUTO) 7 % (22-44); MEAN CORPUSCULAR HEMOGLOBIN 29.9 pg (27.0-34.8); MEAN CORPUSCULAR HGB CONC 33.9 g/dL (32.4-35.8); MEAN PLATELET VOLUME 8.1 fL (7.4-10.4); MONOCYTES % (AUTO) 7 % (2-9); NEUTROPHILS % (AUTO) 84 % (42-75); PLATELET COUNT 157 x10^3/uL (130-400); RED BLOOD COUNT 3.46 x10^6/uL (3.82-5.3); RED CELL DISTRIBUTION WIDTH 12.6 % (9.6-15.2)
[2020-09-05 11:39] LABS: MD NO
[2020-09-05 11:50] LABS: ALBUMIN 3.5 g/dL (3.4-5.0); ANION GAP 3 mmol/L (5-15); CALCIUM 8.4 mg/dL (8.5-10.1); CHLORIDE 110 mmol/L (98-107)
[2020-09-05 11:53] LABS: ALANINE AMINOTRANSFERASE 13 U/L (12-78); ALKALINE PHOSPHATASE 46 U/L (45-117); BILIRUBIN,TOTAL 0.8 mg/dL (0.2-1.0); TOTAL PROTEIN 6.2 g/dL (6.4-8.2)
--- NOTE | 2020-09-05 12:23 | NUR ---
PIV inserted per order. Pt resting in bed, denies needs.
[2020-09-05] MEDS ORDERED: OMNIPAQUE 350 MG/ML, 75ML BOTTLE ONE (13:09)
[2020-09-05] MEDS ORDERED: CEFTRIAXONE PMX 1GM/50ML 50 ML IV ONE (13:30)
[2020-09-05] MEDS ORDERED: CEFTRIAXONE PMX 1GM/50ML 50 ML ONE (13:44)
[2020-09-05] MEDS ORDERED: LIDOCAINE 1%, 10ML ONE (13:57)
[2020-09-05] MEDS ORDERED: hydrALAzine 20 MG/ML, 1ML IVPush PRN (14:00)
[2020-09-05] MEDS ORDERED: BUTALB/APAP/CAFFEINE 50MG/325MG/40MG PO PRN ×2 (14:00)
[2020-09-05] MEDS ORDERED: GUAIFENESIN/DM 200-20MG, 10ML UDC PO PRN (14:00)
[2020-09-05] MEDS ORDERED: BACLOFEN 10 MG TABLET PO PRN (14:00)
[2020-09-05] MEDS ORDERED: ACETAMINOPHEN 325 MG TABLET PO PRN (14:00)
[2020-09-05] MEDS ORDERED: ONDANSETRON ODT 4 MG PO PRN (14:00)
[2020-09-05] MEDS ORDERED: ZOLPIDEM 5MG TABLET PO PRN (14:00)
[2020-09-05] MEDS ORDERED: ENALAPRILAT 1.25 MG/ML, 2ML IVPush PRN (14:00)
[2020-09-05] MEDS ORDERED: HYDROmorphone 2 MG/ML, 1ML IVPush PRN (14:00)
--- NOTE | 2020-09-05 14:24 | NUR ---
Report given to Lorene VELAZQUEZ
--- NOTE | 2020-09-05 14:25 | NUR ---
Pt currently in IR for thoracentesis
[2020-09-05 15:26] VITALS: BP 109/74
[2020-09-05 15:27] VITALS: BP 109/74
[2020-09-05] MEDS: OXYcodone IR 5MG TABLET PO PRN ×2 (17:00→20:52)
[2020-09-05 19:13] VITALS: BP 105/56
[2020-09-05] MEDS: MELATONIN 5 MG TABLET PO SCH (20:51)
[2020-09-06 00:41] VITALS: BP 104/72
[2020-09-06] MEDS: OXYcodone IR 5MG TABLET PO PRN (02:36)
[2020-09-06 05:50] LABS: BASOPHILS % (AUTO) 0 % (0-1); EOSINOPHILS % (AUTO) 3 % (1-7); LYMPHOCYTES % (AUTO) 8 % (22-44); MEAN CORPUSCULAR HGB CONC 34.1 g/dL (32.4-35.8); MEAN PLATELET VOLUME 8.8 fL (7.4-10.4); MONOCYTES % (AUTO) 6 % (2-9); NEUTROPHILS % (AUTO) 84 % (42-75); PLATELET COUNT 145 x10^3/uL (130-400); RED BLOOD COUNT 3.33 x10^6/uL (3.82-5.3); RED CELL DISTRIBUTION WIDTH 12.2 % (9.6-15.2)
[2020-09-06] MEDS: ONDANSETRON 2MG/ML, 2ML IVPush PRN ×2 (05:50→11:11)
[2020-09-06 05:51] LABS: MD NO
[2020-09-06 06:01] LABS: CALCIUM 8.3 mg/dL (8.5-10.1); CHLORIDE 107 mmol/L (98-107)
[2020-09-06 06:05] LABS: ANION GAP 7 mmol/L (5-15); CREATININE 0.42 mg/dL (0.55-1.02)
[2020-09-06] MEDS: SENNA/DOCUSATE TABLET PO SCH (09:00)
[2020-09-06 09:06] VITALS: BP 109/74
[2020-09-06 11:40] VITALS: BP 118/81
[2020-09-06] MEDS ORDERED: KETOROLAC 30 MG/1 ML ONE (11:58)
[2020-09-06] MEDS: KETOROLAC 30 MG/1 ML IVPush PRN (12:01)
[2020-09-06 13:38] VITALS: BP 110/75
[2020-09-06 19:20] VITALS: BP 108/75
[2020-09-06] MEDS: MELATONIN 5 MG TABLET PO SCH (21:43)
[2020-09-07 02:21] VITALS: BP 105/71
[2020-09-07] MEDS: KETOROLAC 30 MG/1 ML IVPush PRN (04:43)
[2020-09-07 06:47] VITALS: BP 102/71
[2020-09-07] MEDS: SENNA/DOCUSATE TABLET PO SCH (09:00)
== END 2020-09-07 10:56 | disposition home or self-care (01) | DRG 186 ==
LOC: ED 11:26 → ORIP 14:59 → 5SO 15:11 → 3N 09-06 17:53 → DCLOUNGE 09-07 10:48
PROVIDERS: ADMIT Family Medicine; ATTEND Family Medicine
PROC: 0W993ZZ Drainage of Right Pleural Cavity, Percutaneous Approach (ICD-10-PCS; principal; 2020-09-05)
DX: J90 Pleural effusion, not elsewhere classified (principal); J18.9 Pneumonia, unspecified organism; J93.83 Other pneumothorax; E83.51 Hypocalcemia; Z85.72 Personal history of non-Hodgkin lymphomas; Z90.710 Acquired absence of both cervix and uterus
CPT/HCPCS: 32555; 36415; 82042; 82150; 82945; 83986; 89051; 96365; 99285; J3490; 71045; 71046; 71275; 80048; 80053; 83615; 83735; 84157; 85025; 85379; 87070; 87205; 88112; 88305; 93005; G0378; J0696; J1885; J2405; Q9967

== ENCOUNTER → 2020-09-17 | Outpatient (CLI) | payer OTHER ==
[2020-09-17 12:22] LABS: MICROSCOPIC INDICATED
[2020-09-17 12:28] LABS: BASOPHILS % (AUTO) 1 % (0-1); EOSINOPHILS % (AUTO) 1 % (1-7); LYMPHOCYTES % (AUTO) 6 % (22-44); MEAN CORPUSCULAR HEMOGLOBIN 28.9 pg (27.0-34.8); MEAN CORPUSCULAR HGB CONC 34.2 g/dL (32.4-35.8); MEAN PLATELET VOLUME 7.4 fL (7.4-10.4); MONOCYTES % (AUTO) 4 % (2-9); NEUTROPHILS % (AUTO) 88 % (42-75); PLATELET COUNT 426 x10^3/uL (130-400); RED BLOOD COUNT 4.19 x10^6/uL (3.82-5.3); RED CELL DISTRIBUTION WIDTH 12.2 % (9.6-15.2)
[2020-09-17 12:31] LABS: ALBUMIN 3.6 g/dL (3.4-5.0); CALCIUM 9.2 mg/dL (8.5-10.1); CHLORIDE 104 mmol/L (98-107)
[2020-09-17 12:36] LABS: ALANINE AMINOTRANSFERASE 16 U/L (12-78); ALKALINE PHOSPHATASE 72 U/L (45-117); ANION GAP 5 mmol/L (5-15); BILIRUBIN,TOTAL 0.4 mg/dL (0.2-1.0); TOTAL PROTEIN 7.5 g/dL (6.4-8.2)
[2020-09-17 12:37] LABS: CREATININE 0.69 mg/dL (0.55-1.02)
[2020-09-17 13:07] LABS: MD SCAN
== END | disposition home or self-care (01) ==
LOC: LAB 11:58
PROVIDERS: ATTEND Obstetrics & Gynecology
DX: Z09 Encounter for follow-up examination after completed treatment for conditions other than malignant neoplasm (principal)
CPT/HCPCS: 36415; 80053; 81001; 85025; 87077; 87086; 87147

== ENCOUNTER → 2020-09-25 | Outpatient (CLI) | payer OTHER | END | disposition home or self-care (01) | LOC: PETCFH 07:35 | PROVIDERS: ATTEND Internal Medicine Hematology & Oncology | DX: C88.4 Extranodal marginal zone B-cell lymphoma of mucosa-associated lymphoid tissue [MALT-lymphoma] (principal); C83.81 Other non-follicular lymphoma, lymph nodes of head, face, and neck; J91.8 Pleural effusion in other conditions classified elsewhere | CPT/HCPCS: 71046; 78815; A9552 ==

== ENCOUNTER → 2020-10-09 | Outpatient (CLI) | payer OTHER ==
[2020-10-09 11:54] LABS: BASOPHILS % (AUTO) 1 % (0-1); EOSINOPHILS % (AUTO) 10 % (1-7); LYMPHOCYTES % (AUTO) 23 % (22-44); MEAN CORPUSCULAR HEMOGLOBIN 28.8 pg (27.0-34.8); MEAN CORPUSCULAR HGB CONC 33.6 g/dL (32.4-35.8); MEAN PLATELET VOLUME 8.5 fL (7.4-10.4); MONOCYTES % (AUTO) 7 % (2-9); NEUTROPHILS % (AUTO) 60 % (42-75); PLATELET COUNT 190 x10^3/uL (130-400); RED BLOOD COUNT 4.68 x10^6/uL (3.82-5.3); RED CELL DISTRIBUTION WIDTH 13.7 % (9.6-15.2)
[2020-10-09 11:55] LABS: MD NO
[2020-10-09 12:17] LABS: ALBUMIN 4.1 g/dL (3.4-5.0); ANION GAP 5 mmol/L (5-15); CALCIUM 9.2 mg/dL (8.5-10.1); CHLORIDE 108 mmol/L (98-107)
[2020-10-09 12:22] LABS: ALANINE AMINOTRANSFERASE 18 U/L (12-78); ALKALINE PHOSPHATASE 74 U/L (45-117); BILIRUBIN,TOTAL 0.5 mg/dL (0.2-1.0); CREATININE 0.72 mg/dL (0.55-1.02); TOTAL PROTEIN 7.3 g/dL (6.4-8.2)
== END | disposition home or self-care (01) ==
LOC: LAB 11:31
PROVIDERS: ATTEND Internal Medicine Hematology & Oncology
DX: Z51.12 Encounter for antineoplastic immunotherapy (principal); Z51.11 Encounter for antineoplastic chemotherapy; C83.81 Other non-follicular lymphoma, lymph nodes of head, face, and neck; C88.4 Extranodal marginal zone B-cell lymphoma of mucosa-associated lymphoid tissue [MALT-lymphoma]; D70.1 Agranulocytosis secondary to cancer chemotherapy; J91.8 Pleural effusion in other conditions classified elsewhere
CPT/HCPCS: 36415; 80053; 83615; 85025

== ENCOUNTER → 2021-02-20 | Outpatient (CLI) | payer OTHER ==
[~2021-02-20] MED LIST changes: +OXYC1TAB12 PO; -OXYC1TAB14 PO
[2021-02-20 07:48] LABS: BASOPHILS % (AUTO) 1 % (0-1); EOSINOPHILS % (AUTO) 4 % (1-7); LYMPHOCYTES % (AUTO) 28 % (22-44); MEAN CORPUSCULAR HEMOGLOBIN 28.4 pg (27.0-34.8); MEAN CORPUSCULAR HGB CONC 33.8 g/dL (32.4-35.8); MONOCYTES % (AUTO) 8 % (2-9); NEUTROPHILS % (AUTO) 60 % (42-75); PLATELET COUNT 202 x10^3/uL (130-400); RED BLOOD COUNT 4.71 x10^6/uL (3.82-5.3)
[2021-02-20 07:55] LABS: ALBUMIN 4.1 g/dL (3.4-5.0); ANION GAP 8 mmol/L (5-15); CHLORIDE 106 mmol/L (98-107)
[2021-02-20 07:58] LABS: ALANINE AMINOTRANSFERASE 21 U/L (12-78); ALKALINE PHOSPHATASE 72 U/L (45-117); BILIRUBIN,TOTAL 0.7 mg/dL (0.2-1.0); CREATININE 0.68 mg/dL (0.55-1.02); TOTAL PROTEIN 7.5 g/dL (6.4-8.2)
== END | disposition home or self-care (01) ==
LOC: LAB 07:26
PROVIDERS: ATTEND Internal Medicine
DX: C83.81 Other non-follicular lymphoma, lymph nodes of head, face, and neck (principal); D64.9 Anemia, unspecified; D69.59 Other secondary thrombocytopenia; M25.511 Pain in right shoulder; R23.2 Flushing
CPT/HCPCS: 36415; 80053; 85025